=== PATIENT | female | born 1975 | race African-American/Black ===

== ENCOUNTER 2017-01-05 03:01 | Emergency (ER) | payer OTHER ==
[2017-01-05 03:30] LABS: BASOPHIL 0.9 % (0-2); EOSINOPHIL 0.9 % (0-5); HCT 37.4 % (37.0-47.0); HGB 12.6 g/dl (12.5-16.0); LYMPHOCYTE 54.9 % (15-48); MCH 30.1 pg (25.0-31.0); MCHC 33.7 g/dL (32.0-36.0); MCV 89.5 fL (78.0-100.0); MONOCYTE 8.1 % (0-12); MPV 9.8 fL (6.0-9.5); NEUTROPHIL 35.2 % (41-80); PLT 259 K/uL (150-400); RBC 4.18 M/uL (4.20-5.40); WBC 5.7 K/uL (4.0-10.5)
[2017-01-05 03:47] LABS: BILIRUBIN - TOTAL 0.2 mg/dL (0.1-1.0); CREATININE 0.6 mg/dL (0.5-1.0); GLOBULIN (CALCULATION) 2.5 g/dL (2.2-4.2); POTASSIUM 4.2 mmol/L (3.5-5.1); TOTAL PROTEIN 6.5 g/dL (6.4-8.3)
== END 2017-01-05 06:54 | disposition home or self-care (01) ==
LOC: FER 03:01
PROVIDERS: Emergency Medicine
DX: R07.9 Chest pain, unspecified (principal); R00.2 Palpitations
CPT/HCPCS: 36415; 71010; 80053; 84484; 85025; 85379; 93005

== ENCOUNTER 2017-02-07 20:12 | Emergency (ER) | payer OTHER | END 2017-02-07 23:13 | disposition home or self-care (01) | LOC: FER 20:12 | DX: M10.9 Gout, unspecified (principal) | CPT/HCPCS: 71101; 99284 ==

== ENCOUNTER 2017-04-30 12:36 | Emergency (ER) | payer OTHER | END 2017-04-30 12:58 | disposition home or self-care (01) | LOC: FER 12:36 | DX: L01.02 Bockhart's impetigo (principal) | CPT/HCPCS: 99283 ==

== ENCOUNTER 2020-11-29 11:20 | Emergency (ER) | payer OTHER ==
[~2020-11-29 11:20] MED LIST: BACLOFEN 10MG T10 MG PO; BENTYL10 MG PO; CARAFATE1 GM PO; DUONEB 2.5-0.5M1 AMP INH; KEFLEX500 MG PO; MELOXICAM15 MG PO; NAPROXEN500 MG PO; NEBULIZER UNIT NEB; NORCO 5-325 TA1 EACH PO; PREDNISONE 20MG20 MG PO; PROTONIX 40MG T40 MG PO; ROBAXIN750 MG PO; VENTOLIN HFA IN18 GM INH; ZOFRAN8 MG PO
[2020-11-29 12:24] LABS: BILIRUBIN NEGATIVE (NEGATIVE); BLOOD TRACE-INTACT Ery/uL (NEGATIVE); CLARITY CLEAR (CLEAR); COLOR YELLOW (YELLOW); GLUCOSE (U) NORMAL (NORMAL); LEUKOCYTES NEGATIVE Leu/uL (NEGATIVE); NITRITE NEGATIVE (NEGATIVE); PROTEIN NEGATIVE (NEGATIVE); SPECIFIC GRAVITY 1.015 (1.001-1.030); UROBILINOGEN 0.2 mg/dL (0.2-1.0)
[2020-11-29 12:43] LABS: URINARY RBC RARE
== END 2020-11-29 13:27 | disposition home or self-care (01) ==
LOC: FER 11:20
PROVIDERS: Emergency Medicine
DX: M54.2 Cervicalgia (principal); J02.9 Acute pharyngitis, unspecified; R30.0 Dysuria
CPT/HCPCS: 81001; 99283

== ENCOUNTER 2021-03-28 10:18 | Emergency (ER) | payer OTHER ==
[2021-03-28] MEDS ORDERED: FLEXERIL5 MG PO (13:05)
[2021-03-28] MEDS ORDERED: VOLTAREN100 GM PO (13:05)
== END 2021-03-28 13:27 | disposition home or self-care (01) ==
LOC: FER 10:18
DX: G56.82 Other specified mononeuropathies of left upper limb (principal); R07.89 Other chest pain; Z88.8 Allergy status to other drugs, medicaments and biological substances
CPT/HCPCS: 71250

== ENCOUNTER 2021-08-01 09:06 | Emergency (ER) | payer OTHER ==
[~2021-08-01 09:06] MED LIST changes: +FLEXERIL5 MG PO; +VOLTAREN100 GM PO
[2021-08-01 10:23] LABS: BASOPHIL 0.4 % (0-2); EOSINOPHIL 0.5 % (0-5); HCT 39.4 % (37.0-47.0); HGB 13.4 g/dl (12.5-16.0); LYMPHOCYTE 38.1 % (15-48); MCH 31.2 pg (25.0-31.0); MCV 91.8 fL (78.0-100.0); MONOCYTE 7.8 % (0-12); NEUTROPHIL 53.1 % (41-80); NRBC 0; PLT 223 K/uL (150-400); RBC 4.29 M/uL (4.20-5.40); RDW 14.3 % (11.5-14.0); WBC 7.4 K/uL (4.0-10.5)
[2021-08-01 10:36] LABS: BILIRUBIN NEGATIVE (NEGATIVE); BLOOD TRACE-INTACT Ery/uL (NEGATIVE); CLARITY CLEAR (CLEAR); COLOR YELLOW (YELLOW); GLUCOSE (U) NORMAL (NORMAL); LEUKOCYTES NEGATIVE Leu/uL (NEGATIVE); NITRITE NEGATIVE (NEGATIVE); PROTEIN NEGATIVE (NEGATIVE); UROBILINOGEN 0.2 mg/dL (0.2-1.0)
[2021-08-01 10:38] LABS: ECSTASY (MDMA) NEGATIVE (NEGATIVE); MARIJUANA (THC) POSITIVE (NEGATIVE)
[2021-08-01 10:39] LABS: AMPHETAMINES NEGATIVE (NEGATIVE); BARBITURATES NEGATIVE (NEGATIVE); METHADONE NEGATIVE (NEGATIVE); OPIATES NEGATIVE (NEGATIVE); OXYCODONE NEGATIVE (NEGATIVE)
[2021-08-01 10:39] LABS: ALBUMIN 3.7 g/dL (3.4-5.0); BILIRUBIN - TOTAL 0.4 mg/dL (0.2-1.0); BUN/CREAT RATIO (CALC) 10.9 RATIO; CREATININE 1.01 mg/dL (0.51-0.95); GLOBULIN (CALCULATION) 3.3 g/dL; POTASSIUM 4.2 mmol/L (3.5-5.1)
[2021-08-01 10:50] LABS: URINARY RBC RARE
[2021-08-01] MEDS ORDERED: PEPCID40 MG PO (11:35)
[2021-08-01] MEDS ORDERED: CLOTRIMAZOLE AF1535 TOP (11:35)
== END 2021-08-01 11:53 | disposition home or self-care (01) ==
LOC: FER 09:06
PROVIDERS: Internal Medicine
DX: K21.9 Gastro-esophageal reflux disease without esophagitis (principal); K44.9 Diaphragmatic hernia without obstruction or gangrene; R21 Rash and other nonspecific skin eruption; F17.210 Nicotine dependence, cigarettes, uncomplicated; Z98.51 Tubal ligation status; Z98.890 Other specified postprocedural states; Z88.1 Allergy status to other antibiotic agents
CPT/HCPCS: 36415; 71045; 80053; 80305; 81001; 83690; 84484; 85025; 93005

== ENCOUNTER 2021-12-25 19:33 | Emergency (ER) | payer OTHER ==
[~2021-12-25 19:33] MED LIST changes: +CLOTRIMAZOLE AF1535 TOP; +PEPCID40 MG PO
== END 2021-12-25 20:43 | disposition home or self-care (01) ==
LOC: FER 19:33
DX: S61.210A Laceration without foreign body of right index finger without damage to nail, initial encounter (principal); Z88.1 Allergy status to other antibiotic agents; W25.XXXA Contact with sharp glass, initial encounter; Y92.009 Unspecified place in unspecified non-institutional (private) residence as the place of occurrence of the external cause

== ENCOUNTER 2021-12-27 10:53 | Emergency (ER) | payer OTHER | END 2021-12-27 11:34 | disposition home or self-care (01) | LOC: FER 10:53 | DX: S64.490A Injury of digital nerve of right index finger, initial encounter (principal); F17.200 Nicotine dependence, unspecified, uncomplicated; Z88.1 Allergy status to other antibiotic agents; X58.XXXA Exposure to other specified factors, initial encounter; Y92.009 Unspecified place in unspecified non-institutional (private) residence as the place of occurrence of the external cause | CPT/HCPCS: 99283 ==

== ENCOUNTER 2022-01-28 10:52 | Emergency (ER) | payer OTHER | END 2022-01-28 13:20 | disposition home or self-care (01) | LOC: FER 10:52 | DX: U07.1 COVID-19 (principal); F17.200 Nicotine dependence, unspecified, uncomplicated; Z88.4 Allergy status to anesthetic agent | CPT/HCPCS: 36415; 84484; J1885 ==

== ENCOUNTER 2022-02-03 07:33 | Emergency (ER) | payer OTHER ==
[~2022-02-03] VITALS: Ht 154.9 cm; Wt 56.7 kg
[2022-02-03] MEDS ORDERED: MUCINEX D TABL1 EACH PO (08:35)
[2022-02-03] MEDS ORDERED: VENTOLIN HFA IN18 GM INH (08:35)
== END 2022-02-03 08:45 | disposition home or self-care (01) ==
LOC: FER 07:33
DX: U07.1 COVID-19 (principal); F17.210 Nicotine dependence, cigarettes, uncomplicated; Z88.8 Allergy status to other drugs, medicaments and biological substances
CPT/HCPCS: 71046

== ENCOUNTER 2022-05-13 07:15 | Emergency (ER) | payer OTHER ==
[~2022-05-13 07:15] MED LIST changes: +MUCINEX D TABL1 EACH PO
[2022-05-13 08:16] LABS: BASOPHIL 0.8 % (0-2); EOSINOPHIL 0.8 % (0-5); HCT 38.1 % (37.0-47.0); HGB 12.7 g/dl (12.5-16.0); LYMPHOCYTE 47.3 % (15-48); MCH 30.9 pg (25.0-31.0); MCHC 33.3 g/dL (32.0-36.0); MCV 92.7 fL (78.0-100.0); MONOCYTE 8.4 % (0-12); MPV 9.9 fL (6.0-9.5); NEUTROPHIL 42.5 % (41-80); NRBC 0; PLT 220 K/uL (150-400); RBC 4.11 M/uL (4.20-5.40); RDW 13.9 % (11.5-14.0); WBC 6.3 K/uL (4.0-10.5)
[2022-05-13 08:17] LABS: BILIRUBIN NEGATIVE (NEGATIVE); BLOOD TRACE-INTACT Ery/uL (NEGATIVE); CLARITY CLEAR (CLEAR); COLOR YELLOW (YELLOW); GLUCOSE (U) NORMAL (NORMAL); LEUKOCYTES NEGATIVE Leu/uL (NEGATIVE); NITRITE NEGATIVE (NEGATIVE); PROTEIN NEGATIVE (NEGATIVE); SPECIFIC GRAVITY 1.025 (1.001-1.030); UROBILINOGEN 0.2 mg/dL (0.2-1.0)
[2022-05-13 08:31] LABS: SQUAMOUS EPITHELIAL CELLS RARE; URINARY RBC RARE; URINARY WBC RARE
[2022-05-13] MEDS ORDERED: ANUSOL-HC30 GM TOP (08:38)
== END 2022-05-13 08:50 | disposition home or self-care (01) ==
LOC: FER 07:15
PROVIDERS: Emergency Medicine
DX: K64.4 Residual hemorrhoidal skin tags (principal); F17.210 Nicotine dependence, cigarettes, uncomplicated; Z88.1 Allergy status to other antibiotic agents; Z28.310 Unvaccinated for COVID-19
CPT/HCPCS: 36415; 81001; 85025; 99283

== ENCOUNTER 2022-05-23 05:15 | Emergency (ER) | payer OTHER ==
[~2022-05-23 05:15] MED LIST changes: +ANUSOL-HC30 GM TOP
[2022-05-23 06:15] LABS: BASOPHIL 0.5 % (0-2); EOSINOPHIL 0.9 % (0-5); HGB 12.4 g/dl (12.5-16.0); LYMPHOCYTE 39.6 % (15-48); MCHC 33.5 g/dL (32.0-36.0); MCV 92.5 fL (78.0-100.0); MPV 10.1 fL (6.0-9.5); NEUTROPHIL 52.8 % (41-80); NRBC 0; PLT 217 K/uL (150-400); WBC 9.4 K/uL (4.0-10.5)
== END 2022-05-23 06:56 | disposition home or self-care (01) ==
LOC: FER 05:15
PROVIDERS: Internal Medicine
DX: M25.522 Pain in left elbow (principal); F17.210 Nicotine dependence, cigarettes, uncomplicated; Z28.310 Unvaccinated for COVID-19
CPT/HCPCS: 36415; 73070; 85025; 85379; 86140; J2930

== ENCOUNTER 2022-07-08 08:47 | Emergency (ER) | payer OTHER ==
[2022-07-08 10:30] LABS: BASOPHIL 0.5 % (0-2); EOSINOPHIL 0.7 % (0-5); HCT 41.3 % (37.0-47.0); LYMPHOCYTE 49.8 % (15-48); MCH 31.1 pg (25.0-31.0); MCHC 33.9 g/dL (32.0-36.0); MCV 91.8 fL (78.0-100.0); MONOCYTE 7.3 % (0-12); MPV 9.7 fL (6.0-9.5); NEUTROPHIL 41.5 % (41-80); NRBC 0; PLT 230 K/uL (150-400); RDW 13.6 % (11.5-14.0)
[2022-07-08 10:33] LABS: BILIRUBIN NEGATIVE (NEGATIVE); BLOOD NEGATIVE Ery/uL (NEGATIVE); CLARITY CLEAR (CLEAR); COLOR YELLOW (YELLOW); GLUCOSE (U) NORMAL (NORMAL); LEUKOCYTES NEGATIVE Leu/uL (NEGATIVE); NITRITE NEGATIVE (NEGATIVE); PROTEIN NEGATIVE (NEGATIVE); UROBILINOGEN 0.2 mg/dL (0.2-1.0); pH 6.5 (5.0-9.0)
[2022-07-08 10:35] LABS: AMPHETAMINES NEGATIVE (NEGATIVE); BARBITURATES NEGATIVE (NEGATIVE); ECSTASY (MDMA) NEGATIVE (NEGATIVE); MARIJUANA (THC) POSITIVE (NEGATIVE); METHADONE NEGATIVE (NEGATIVE); OPIATES NEGATIVE (NEGATIVE); OXYCODONE NEGATIVE (NEGATIVE)
[2022-07-08 10:56] LABS: ALBUMIN 4.1 g/dL (3.4-5.0); ALKALINE PHOSHATASE 70 U/L (46-116); ALT 35 U/L (14-59); AST 22 U/L (15-37); BILIRUBIN - TOTAL 0.4 mg/dL (0.2-1.0); BUN 12 mg/dL (7-18); BUN/CREAT RATIO (CALC) 16.7 RATIO; CHLORIDE 104 mmol/L (98-107); CO2 (BICARBONATE) 28 mmol/L (21-32); CREATININE 0.72 mg/dL (0.51-0.95); GLOBULIN (CALCULATION) 3.4 g/dL; GLUCOSE 77 mg/dL (74-106); LIPASE 103 U/L (73-393); POTASSIUM 4.1 mmol/L (3.5-5.1); TOTAL PROTEIN 7.5 g/dL (6.4-8.2)
[2022-07-08] MEDS ORDERED: METRONIDAZOLE500 MG PO (11:21)
== END 2022-07-08 12:03 | disposition home or self-care (01) ==
LOC: FER 08:47
PROVIDERS: Internal Medicine
DX: K52.9 Noninfective gastroenteritis and colitis, unspecified (principal); F17.210 Nicotine dependence, cigarettes, uncomplicated; Z28.310 Unvaccinated for COVID-19; Z88.1 Allergy status to other antibiotic agents
CPT/HCPCS: 36415; 80053; 80305; 81003; 83690; 84145; 85025; G0480

== ENCOUNTER 2022-07-16 18:43 | Emergency (ER) | payer OTHER ==
[~2022-07-16 18:43] MED LIST changes: +METRONIDAZOLE500 MG PO
[2022-07-16 20:22] LABS: BASOPHIL 0.7 % (0-2); HCT 36.7 % (37.0-47.0); HGB 12.4 g/dl (12.5-16.0); LYMPHOCYTE 55.3 % (15-48); MCH 30.5 pg (25.0-31.0); MCHC 33.8 g/dL (32.0-36.0); MCV 90.4 fL (78.0-100.0); MONOCYTE 9.6 % (0-12); MPV 9.9 fL (6.0-9.5); NEUTROPHIL 33.4 % (41-80); NRBC 0; PLT 225 K/uL (150-400); RBC 4.06 M/uL (4.20-5.40); RDW 13.2 % (11.5-14.0)
[2022-07-16 20:37] LABS: ALBUMIN 3.8 g/dL (3.4-5.0); BILIRUBIN - TOTAL 0.4 mg/dL (0.2-1.0); BUN/CREAT RATIO (CALC) 13.7 RATIO; CREATININE 0.73 mg/dL (0.51-0.95); POTASSIUM 3.6 mmol/L (3.5-5.1); TOTAL PROTEIN 6.8 g/dL (6.4-8.2)
[2022-07-16] MEDS ORDERED: NORCO 5-325 TA1 EACH PO (22:25)
[2022-07-16] MEDS ORDERED: ONDANSETRON HCL4 MG PO (22:25)
[2022-07-16 23:48] LABS: BILIRUBIN NEGATIVE (NEGATIVE); BLOOD TRACE-LYSED Ery/uL (NEGATIVE); CLARITY CLEAR (CLEAR); COLOR YELLOW (YELLOW); GLUCOSE (U) NORMAL (NORMAL); LEUKOCYTES NEGATIVE Leu/uL (NEGATIVE); NITRITE NEGATIVE (NEGATIVE); PROTEIN NEGATIVE (NEGATIVE)
[2022-07-17 00:04] LABS: SQUAMOUS EPITHELIAL CELLS >50; URINARY RBC RARE; URINARY WBC RARE
== END 2022-07-16 22:53 | disposition home or self-care (01) ==
LOC: FER 18:43
PROVIDERS: Emergency Medicine
DX: M54.50 Low back pain, unspecified (principal); K21.9 Gastro-esophageal reflux disease without esophagitis; Z88.1 Allergy status to other antibiotic agents; Z79.899 Other long term (current) drug therapy; V00.121A Fall from non-in-line roller-skates, initial encounter; Y93.51 Activity, roller skating (inline) and skateboarding
CPT/HCPCS: 36415; 80053; 81001; 82150; 83690; 85025; J1885; J2405; J7030; Q9967

== ENCOUNTER 2022-07-17 21:31 | Emergency (ER) | payer OTHER ==
[~2022-07-17 21:31] MED LIST changes: +ONDANSETRON HCL4 MG PO
== END 2022-07-17 23:46 | disposition home or self-care (01) ==
LOC: FER 21:31
DX: K40.90 Unilateral inguinal hernia, without obstruction or gangrene, not specified as recurrent (principal); Z88.8 Allergy status to other drugs, medicaments and biological substances
CPT/HCPCS: 99283